=== PATIENT | female | born 1955 | race African-American/Black ===

== ENCOUNTER 2016-08-10 11:56 | Emergency (ER) | payer MEDICAID ==
[2016-08-10] MEDS ORDERED: DILAUDID 1 MG/ML AMP ONE (15:49)
== END 2016-08-10 16:58 | disposition home or self-care (01) ==
LOC: ER 11:56
DX: S93.622A Sprain of tarsometatarsal ligament of left foot, initial encounter (principal); W01.0XXA Fall on same level from slipping, tripping and stumbling without subsequent striking against object, initial encounter; Y92.009 Unspecified place in unspecified non-institutional (private) residence as the place of occurrence of the external cause
CPT/HCPCS: 96372